=== PATIENT | female | born 1990 | race Caucasian/White ===

== ENCOUNTER 2018-08-03 23:42 | Emergency (ER) | payer OTHER ==
[~2018-08-03] VITALS: Ht 165.1 cm; Wt 64.1 kg
[~2018-08-03 23:42] MED LIST: ALBU0.0939 IH; BECL0.089 INH; FERR-142 PO; PREN-234 PO
[2018-08-03 23:45] VITALS: BP 106/64
--- NOTE | 2018-08-03 23:49 | NUR ---
Mekhi prasad in [facility] - 08/03/18 at 2352 by CRISTINA PT TAKEN TO BED 2
--- NOTE | 2018-08-03 23:56 | NUR ---
PT TAKEN TO BED 6
[2018-08-03] MEDS ORDERED: NACL 0.9% 1,000 ML IV SCH (23:59)
--- NOTE | 2018-08-04 | NUR ---
PT BIB FAMILY C/O LOW LT ABD PAIN X 1-2 DAYS, HX SZ, BIPOLAR, CROHN'SPT DENIES N/V/D; SKIN IS INTACT, PINK/WARM/DRY; AAOX4, PERRL, UNSTEADY GAIT S/P LOW ABD PAIN; LUNGS CLEAR BL, BREATHING UNLABORED; HR EVEN AND REGULAR, BL PERIPHERAL PULSES PRESENT; BS ACTIVE X4, NO TENDERNESS TO PALPATION, NO PT DENIES ANY FEVER, CP, SOB, OR COUGH AT THIS TIME; PT STATES 7/10 PAIN AT THIS TIME; VSS; PATIENT POSITIONED FOR COMFORT; HOB ELEVATED; BEDRAILS UP X2; BED DOWN.
[2018-08-04] MEDS ORDERED: QUET200T PO (00:01)
[2018-08-04] MEDS ORDERED: ELA10 PO (00:01)
[2018-08-04] MEDS ORDERED: LEVE1000 PO (00:01)
--- NOTE | 2018-08-04 00:05 | NUR ---
LAB AT BEDSIDE
--- NOTE | 2018-08-04 00:19 | NUR ---
X-Ray at bedside.
[2018-08-04 00:22] LABS: BASOPHILS % (AUTO) 0.6 % (0.0-2.0); EOSINOPHILS # (AUTO) 0.1 K/uL (0-0.4); EOSINOPHILS % (AUTO) 2.1 % (0.0-4.0); HEMATOCRIT 35.5 % (36-48); HEMOGLOBIN 11.7 g/dL (12.0-16.0); LYMPHOCYTES # (AUTO) 1.9 K/uL (2.5-16.5); LYMPHOCYTES % (AUTO) 28.4 % (20.5-51.1); MEAN CORPUSCULAR HEMOGLOBIN 30 pg (27-31); MEAN CORPUSCULAR HGB CONC 33 g/dL (33-37); MEAN CORPUSCULAR VOLUME 90.8 fL (80-94); MONOCYTES # (AUTO) 0.4 K/uL (0.8-1.0); MONOCYTES % (AUTO) 6.3 % (1.7-9.3); NEUTROPHILS # (AUTO) 4.1 K/uL (1.8-7.7); NEUTROPHILS % (AUTO) 62.6 % (42.2-75.2); PLATELET COUNT (AUTO) 315 K/uL (140-450); RED BLOOD CELL COUNT(AUTO) 3.91 MIL/uL (4.20-5.40); RED CELL DISTRIBUTION WIDTH 15.2 % (11.6-13.7); WHITE BLOOD COUNT (AUTO) 6.6 K/uL (4.8-10.8)
[2018-08-04 00:26] LABS: ANION GAP 10.5 (8-16); CARBON DIOXIDE 27.3 mmol/L (21-32); CREATININE 0.7 mg/dL (0.6-1.3); POTASSIUM 3.8 mmol/L (3.5-5.1)
--- NOTE | 2018-08-04 00:31 | NUR ---
PT TAKEN TO CT
--- NOTE | 2018-08-04 00:31 | NUR ---
Mekhi prasad in [facility] - 08/04/18 at 0031 by CRISTINA PT TAKEN TO BED 6
[2018-08-04 00:32] LABS: ALBUMIN 3.5 g/dL (3.4-5.0); TOTAL BILIRUBIN 0.5 mg/dL (0.0-1.0)
[2018-08-04] MEDS ORDERED: fentaNYL 0.05 MG/ML VIAL IVP ONE (00:45)
[2018-08-04] MEDS ORDERED: levETIRAcetam 500 MG TAB PO ONE (00:45)
--- NOTE | 2018-08-04 00:50 | NUR ---
PT RETURN FROM CT
--- NOTE | 2018-08-04 01:56 | NUR ---
Dr. Lock evaluating patient at bedside.
[2018-08-04 02:13] VITALS: BP 100/54
--- NOTE | 2018-08-04 02:15 | NUR ---
Patient discharged with v/s stable. Written and verbal after care instructions given and explained. Patient alert, oriented and verbalized understanding of instructions. Ambulatory with steady gait. All questions addressed prior to discharge. ID band removed. Patient advised to follow up with PMD. Rx of KEPRA, DONNATOL, NORCO, MOTRIN given. Patient educated on indication of medication including possible reaction and side effects. Opportunity to ask questions provided and answered.
== END 2018-08-04 02:15 | disposition home or self-care (01) ==
LOC: MED 23:42
DX: K56.7 Ileus, unspecified (principal); J45.909 Unspecified asthma, uncomplicated; K21.9 Gastro-esophageal reflux disease without esophagitis; K50.90 Crohn's disease, unspecified, without complications; G40.909 Epilepsy, unspecified, not intractable, without status epilepticus; Z91.030 Bee allergy status; Z79.899 Other long term (current) drug therapy; Z85.038 Personal history of other malignant neoplasm of large intestine; Z98.890 Other specified postprocedural states
CPT/HCPCS: 36415; 71045; 74176; 80053; 81002; 81025; 83605; 85025; 87040; 99284; J3010; J7030; Q0092

== ENCOUNTER 2018-08-22 15:22 | Inpatient (IN) | payer OTHER ==
[~2018-08-22] VITALS: Ht 162.6 cm; Wt 66.7 kg
[~2018-08-22 15:22] MED LIST changes: +ELA10 PO; -FERR-142 PO; +LEVE1000 PO; -PREN-234 PO; +QUET200T PO
[2018-08-22 15:34] VITALS: BP 121/81
--- NOTE | 2018-08-22 15:50 | NUR ---
PT TO ER BED 6
--- NOTE | 2018-08-22 16:11 | NUR ---
UA SENT TO LAB
--- NOTE | 2018-08-22 16:17 | NUR ---
PT BIB SELF C/O 'RIPPING' 10/10 INTERMITENT LLQ ABD PAIN THAT RADIATES TO BACK. PRESSENCE OF LARGE MASS THAT IS TENDER TO TOUCH. PT REPORTS N/V/D. PT DENIES FEVER. PT SPEECH CLEAR, DELAYED. PT STS HX OF CHRONIC ABD PAIN. MEDHX:SIEZURE, BOWEL OBSTRUCTION, DM II, CHRON'S DISEASE, ASTHMA, DEPRESSION, ANXIETY RX: KEPPRA, AMYTRIPTALINE, PT DENIES N/V/D; SKIN IS INTACT, PALE/WARM/DRY; AAOX4, PERRL, WITH EVEN AND STEADY GAIT-SLOW S/P LOW ABD PAIN; LUNGS CLEAR BL, BREATHING UNLABORED; HR EVEN AND REGULAR, BL PERIPHERAL PULSES PRESENT; BS HYPOACTIVE ACTIVE X4 , TENDERNESS TO PALPATION. PT DENIES ANY FEVER, CP, SOB, OR COUGH AT THIS TIME; PT STATES 10/10 PAIN AT THIS TIME; VSS; PATIENT POSITIONED FOR COMFORT; HOB ELEVATED; BEDRAILS UP X2; BED DOWN.
--- NOTE | 2018-08-22 16:22 | NUR ---
SEIZURE PRECAUTIONS PLACED AT THIS TIME
[2018-08-22 16:31] LABS: APPEARANCE,URINE HAZY (CLEAR); BILIRUBIN,URINE 1+ (NEGATIVE); BLOOD, URINE TRACE-L (NEGATIVE); COLOR,URINE YELLOW (YELLOW); LEUKOCYTE ESTERASE ,URINE 2+ (NEGATIVE); NITRITE, URINE NEGATIVE (NEGATIVE); PH,URINE 6.5 (5.0-9.0); UGLUCOSE NEGATIVE (NEGATIVE)
[2018-08-22 16:36] LABS: BARBITURATE, URINE NEG. ng/ml (NEG <=200); BENZODIAZEPINE, URINE NEG. ng/mL (NEG <=200); CANNABINOID, URINE POS. ng/mL (NEG <=50); COCAINE, URINE NEG. ng/mL (NEG <=300); OPIATE, URINE POS. ng/mL (NEG <=2000); PHENCYCLIDINE SCREEN,URINE NEG. ng/mL (NEG <=25)
[2018-08-22 16:52] LABS: RBC,URINE 0-5 /HPF (0-5)
[2018-08-22] MEDS ORDERED: NACL 0.9% 1,000 ML IV ONE (17:24)
[2018-08-22] MEDS ORDERED: NACL 0.9% 2,000 ML IV SCH (17:24)
[2018-08-22] MEDS ORDERED: ONDANSETRON 4 MG/2 ML VIAL IVP ONE ×2 (17:25→20:15)
[2018-08-22] MEDS ORDERED: MORPHINE SULFATE 2 MG/ML SYR IVP ONE (17:25)
[2018-08-22 18:05] LABS: BASOPHILS % (AUTO) 0.4 % (0.0-2.0); EOSINOPHILS # (AUTO) 0.1 K/uL (0-0.4); EOSINOPHILS % (AUTO) 1.1 % (0.0-4.0); HEMATOCRIT 35.3 % (36-48); HEMOGLOBIN 11.7 g/dL (12.0-16.0); LYMPHOCYTES # (AUTO) 0.8 K/uL (2.5-16.5); LYMPHOCYTES % (AUTO) 11.9 % (20.5-51.1); MEAN CORPUSCULAR HEMOGLOBIN 30 pg (27-31); MEAN CORPUSCULAR HGB CONC 33 g/dL (33-37); MONOCYTES # (AUTO) 0.3 K/uL (0.8-1.0); MONOCYTES % (AUTO) 5.1 % (1.7-9.3); NEUTROPHILS # (AUTO) 5.3 K/uL (1.8-7.7); NEUTROPHILS % (AUTO) 81.5 % (42.2-75.2); PLATELET COUNT (AUTO) 365 K/uL (140-450); RED BLOOD CELL COUNT(AUTO) 3.88 MIL/uL (4.20-5.40); RED CELL DISTRIBUTION WIDTH 14.4 % (11.6-13.7); WHITE BLOOD COUNT (AUTO) 6.5 K/uL (4.8-10.8)
[2018-08-22 18:11] LABS: ANION GAP 12.3 (8-16); CARBON DIOXIDE 27.9 mmol/L (21-32); CREATININE 0.7 mg/dL (0.6-1.3); POTASSIUM 4.2 mmol/L (3.5-5.1)
[2018-08-22 18:16] LABS: PROTHROMBIN TIME 11.1 secs (10.8-13.4)
[2018-08-22 18:17] LABS: ALBUMIN 3.4 g/dL (3.4-5.0); TOTAL BILIRUBIN 0.5 mg/dL (0.0-1.0)
--- NOTE | 2018-08-22 18:24 | NUR ---
XRAY AT BEDSIDE
--- NOTE | 2018-08-22 18:32 | NUR ---
TAKEN TO CT.
[2018-08-22] MEDS ORDERED: PIPERACILLIN/TAZOBACTAM 3.375 GM in DEXTROSE 5% 50 ML IV ONE (18:50)
[2018-08-22] MEDS ORDERED: PIPERACILLIN/TAZOBACTAM 3.375 GM VIAL IV ONE (19:11)
--- NOTE | 2018-08-22 19:17 | NUR ---
REPORT GIVEN TO QUALITY CLOTH TESTER RN FOR CONTINUITY OF CARE.
--- NOTE | 2018-08-22 19:30 | NUR ---
RECEIVED REPORT FROM AM NURSE. PT LAYING IN BED, REPORTS 02/22 LLQ PAIN AND NAUSEA, WILL NOTIFY , PT AMBULATORY TO RESTROOM. VS NOTED.
--- NOTE | 2018-08-22 20:05 | NUR ---
Dr. Em evaluating patient at bedside.
[2018-08-22] MEDS ORDERED: MORPHINE SULFATE 4 MG/ML SYR IVP ONE (20:15)
[2018-08-22] MEDS ORDERED: NACL 0.9% 1,000 ML IV SCH (20:44)
[2018-08-22] MEDS ORDERED: DOCUSATE SODIUM 100 MG GELCAP PO PRN (20:45)
[2018-08-22] MEDS ORDERED: ACETAMINOPHEN 325 MG TAB PO PRN (20:45)
--- NOTE | 2018-08-22 21:10 | NUR ---
Patient will be admitted to care of DR RODRÍGUEZ. Admited to [facility]. Will go to room 126B. Belongings list completed. Report to BIBI VIDAL.
[2018-08-22] MEDS ORDERED: LEVE1000 PO (21:16)
[2018-08-22] MEDS ORDERED: DOCU-299 PO (21:16)
[2018-08-22] MEDS ORDERED: IBUP-2218 PO (21:16)
[2018-08-22] MEDS ORDERED: KEP500 PO ×2 (21:16)
[2018-08-22 21:25] LABS: MAGNESIUM 1.7 mg/dL (1.8-2.4); PHOSPHORUS 3.6 mg/dL (2.5-4.9); THYROID STIMULATING HORMONE 0.86 uIU/mL (0.34-3.74)
[2018-08-22] MEDS: DEXT 5% / NACL 0.9% 500 ML IV SCH (22:01)
[2018-08-22] MEDS ORDERED: cefTRIAXone 1,000 MG VIAL ONE (22:04)
[2018-08-22 22:30] VITALS: BP 110/69
--- NOTE | 2018-08-22 22:30 | NUR ---
RECEIVED PATIENT AWAKE, ALERT, RESPIRATION EVEN UNLABORED ON ROOM AIR. NO DISTRESS NOTED. SKIN IS WARM, DRY, AND INTACT. IV PATENT AND INTACT. MRSA SCREEN DONE. INITIAL ASSESSMENT DONE. VITALS WERE TAKEN. PATIENT STABLE. ORIENT PATIENT TO STAFF, ROOM, AND CALL LIGHT. ALL SAFETY MEASURES ARE IN PLACE. PADDED SIDE RAILS FOR SEIZURE PRECAUTION. BED IS AT LOW POSITION. CALL LIGHT WITHIN REACH. WILL CONTINUE TO MONITOR.
--- NOTE | 2018-08-22 22:55 | NUR ---
PATIENT COMPLAINED OF NAUSEOUS. PRN ANTIEMETIC ADMINISTERED PER ORDER. WILL CONTINUE TO MONITOR
[2018-08-22] MEDS: ONDANSETRON 4 MG/2 ML VIAL IM/IVP PRN (22:59)
[2018-08-22] MEDS: MORPHINE SULFATE 2 MG/ML SYR IVP PRN (23:49)
--- NOTE | 2018-08-22 23:50 | NUR ---
SPOKE TO DR. NAVARRO REGARDING NG-TUBE INSERTION ORDER. HE SAID ITS OKAY TO START TOMORROW MORNING AROUND 8AM.
--- NOTE | 2018-08-23 | NUR ---
VITALS WERE TAKEN. PATIENT COMPLAINED OF PAIN 10/10. PRN PAIN MEDS ADMINISTERED PER ORDER. WILL CONTINUE TO MONITOR
--- NOTE | 2018-08-23 01:00 | NUR ---
RECHECKED PATIENT. PATIENT SLEEPING COMFORTABLY NO DISTRESS NOTED. RESPIRATION EVEN UNLABORED ON ROOM AIR. CALL LIGHT WITHIN REACH WILL CONTINUE TO MONITOR.
[2018-08-23] MEDS: DEXT 5% / NACL 0.9% 500 ML IV SCH ×2 (02:55→09:45)
--- NOTE | 2018-08-23 03:55 | NUR ---
CHECKED PATIENT. PATIENT CONDITION STABLE. NO DISTRESS NOTED AT THIS TIME. WILL CONTINUE TO MONITOR.
--- NOTE | 2018-08-23 04:00 | NUR ---
CHECKED PATIENT. PATIENT SLEEPING NO DISTRESS NOTE. CALL LIGHT WITHIN REACH.
--- NOTE | 2018-08-23 07:26 | NUR ---
ENDORSED PATIENT TO DAY SHIFT NURSE FOR CONTINUITY OF CARE, PATIENT STABLE AT THIS TIME.
--- NOTE | 2018-08-23 07:27 | NUR ---
RECEIVED REPORT FROM ASSISTANT CONTROLLER NURSE FOR CONTINUITY OF CARE. PT IN STABLE CONDITION. RESPIRATIONS EVEN AND UNLABORED. IV INTACT AND PATENT. SAFETY MEASURES IN PLACE. BED IN LOW POSITION. CALL LIGHT AT BEDSIDE. WILL CONTINUE TO MONITOR.
[2018-08-23 07:56] LABS: BASOPHILS % (AUTO) 0.6 % (0.0-2.0); EOSINOPHILS # (AUTO) 0.2 K/uL (0-0.4); EOSINOPHILS % (AUTO) 3.4 % (0.0-4.0); HEMOGLOBIN 10.1 g/dL (12.0-16.0); LYMPHOCYTES # (AUTO) 1.7 K/uL (2.5-16.5); LYMPHOCYTES % (AUTO) 28.8 % (20.5-51.1); MEAN CORPUSCULAR HEMOGLOBIN 31 pg (27-31); MEAN CORPUSCULAR HGB CONC 34 g/dL (33-37); MEAN CORPUSCULAR VOLUME 91.1 fL (80-94); MONOCYTES # (AUTO) 0.4 K/uL (0.8-1.0); MONOCYTES % (AUTO) 7.5 % (1.7-9.3); NEUTROPHILS # (AUTO) 3.5 K/uL (1.8-7.7); NEUTROPHILS % (AUTO) 59.7 % (42.2-75.2); PLATELET COUNT (AUTO) 346 K/uL (140-450); RED BLOOD CELL COUNT(AUTO) 3.29 MIL/uL (4.20-5.40); RED CELL DISTRIBUTION WIDTH 14.3 % (11.6-13.7); WHITE BLOOD COUNT (AUTO) 5.9 K/uL (4.8-10.8)
[2018-08-23 08:00] VITALS: BP 98/59
[2018-08-23 08:20] LABS: ANION GAP 8.1 (8-16); CARBON DIOXIDE 29.7 mmol/L (21-32); CREATININE 0.7 mg/dL (0.6-1.3); POTASSIUM 3.8 mmol/L (3.5-5.1)
[2018-08-23 08:22] LABS: MAGNESIUM 1.6 mg/dL (1.8-2.4); PHOSPHORUS 3.7 mg/dL (2.5-4.9)
[2018-08-23 08:23] LABS: CHOL/HDL RATIO 2.6 (1-4.5)
--- NOTE | 2018-08-23 08:42 | NUR ---
PATIENT HAS BEEN SCREENED AND CATEGORIZED MODERATE NUTRITION RISK. PATIENT WILL BE SEEN WITHIN 3-5 DAYS OF ADMISSION. 08/25/18ANA[address]
--- NOTE | 2018-08-23 09:15 | NUR ---
GIVEN ORDERED DUE MEDICATIONS AT THIS TIME. PT TOLERATED WELL. WILL CONTINUE TO MONITOR. BED IN LOW POSITION. CALL LIGHT AT BEDSIDE.
[2018-08-23] MEDS: levETIRAcetam 1,000 MG in NACL 0.9% 100 ML IV SCH ×2 (09:37→21:13)
[2018-08-23] MEDS: LACTOBACILLUS RHAMNOSUS GG 1 EACH CAP PO SCH (09:37)
[2018-08-23] MEDS: HYDROcodone/APAP 7.5/325 MG 1 TAB PO PRN ×3 (09:37→23:04)
[2018-08-23] MEDS ORDERED: MAGNESIUM OXIDE 400 MG TAB PO ONE (09:55)
[2018-08-23] MEDS: DEXT 5% /NACL 0.9% 1,000 ML IV SCH ×2 (10:08→21:02)
[2018-08-23] MEDS: MAG SULF 2000 MG/WATER PREMIX 50 ML IV SCH ×2 (11:42→13:34)
--- NOTE | 2018-08-23 11:46 | NUR ---
PT LYING IN BE D SLEEPING AT THIS TIME. RESPIRATIONS EVEN AND UNLABORED. WILL CONTINUE TO MONITOR. BED IN LOW POSITION. CALL LIGHT AT BEDSIDE.
--- NOTE | 2018-08-23 14:30 | NUR ---
EMILY DUNCAN SEEN PT, ORDERED ABD BINDER AT THIS TIME. PT TOLERATED WELL. WILL CONTINUE TO MONITOR. BED IN LOW POSITION. CALL LIGHT AT BEDSIDE.
[2018-08-23 16:00] VITALS: BP 111/69
--- NOTE | 2018-08-23 16:52 | NUR ---
PT LYING IN BED SLEEPING AT THIS TIME. RESPIRATIONS EVEN AND UNLABORED. WILL CONTINUE TO MONITOR. BED IN LOW POSITION. CALL LIGHT AT BEDSIDE.
--- NOTE | 2018-08-23 19:30 | NUR ---
GAVE REPORT TO RAKER BUFFING WHEEL NURSE FOR CONTINUITY OF CARE. PT IN STABLE CONDITION.
--- NOTE | 2018-08-23 19:35 | NUR ---
RECEIVED ENDORSEMENT FROM AM SHIFT RN; PATIENT A/Ox4, ABLE TO MAKE NEEDS KNOWN. PATIENT IS AMBULATORY. NO SOB OR DISTRESS NOTED. IV SITE ON LEFT ANTECUBITAL, 20 GAUGE, INTACT AND PATENT. SKIN INTACT. BED IN THE LOWEST POSITION, CALL LIGHT WITHIN REACH. INITIAL ASSESSMENT DONE. WILL CONTINUE TO MONITOR.
[2018-08-23] MEDS: MORPHINE SULFATE 2 MG/ML SYR IVP PRN (21:16)
--- NOTE | 2018-08-23 22:00 | NUR ---
PATIENT AWAKE, WATCHING TV. NO DISTRESS NOTED.
[2018-08-24] VITALS: BP 107/63
--- NOTE | 2018-08-24 00:05 | NUR ---
ROUNDS MADE, VITALS SIGNS TAKEN. NO DISTRESS NOTED.
--- NOTE | 2018-08-24 02:30 | NUR ---
FREQUENT CHECKS MADE. PATIENT ASLEEP, EYES CLOSED, VISIBLE CHEST RISE AND FALL NOTED.
--- NOTE | 2018-08-24 04:15 | NUR ---
CHECKS MADE. NO DISTRESS NOTED.
[2018-08-24] MEDS: DEXT 5% /NACL 0.9% 1,000 ML IV SCH ×2 (05:17→23:17)
--- NOTE | 2018-08-24 05:22 | NUR ---
REPLENISHED IVF. PATIENT ASLEEP, NO SOB OR DISTRESS NOTED.
--- NOTE | 2018-08-24 07:25 | NUR ---
ENDORSED PATIENT TO AM SHIFT RN; PATIENT IN STABLE CONDITION.
--- NOTE | 2018-08-24 07:26 | NUR ---
RECEIVED BEDSIDE REPORT FROM RECREATIONAL THERAPY AIDE NURSE. PATIENT IS AWAKE, ALERT AND ORIENTEDX4. NO SIGNS OF DISTRESS ON RA. SKIN INTACT. PATIENT GAIT IS STEADY. PATIENT IS CONTINENT. NO COMPLAINTS AT THIS TIME. IV ON L AC 20 INFUSING D5NS AT 100. CLEAN, DRY AND INTACT. BED IN LOW POSITION. CALL LIGHT WITHIN REACH. WILL CONTINUE TO MONITOR
[2018-08-24 08:00] VITALS: BP 95/53
[2018-08-24] MEDS: levETIRAcetam 1,000 MG in NACL 0.9% 100 ML IV SCH ×2 (09:03→20:20)
--- NOTE | 2018-08-24 09:05 | NUR ---
ADMINISTERED MEDS. PATIENT TOLERATED WELL. WILL CONTINUE TO MONITOR THE PATIENT.
[2018-08-24] MEDS: LACTOBACILLUS RHAMNOSUS GG 1 EACH CAP PO SCH (09:06)
[2018-08-24] MEDS: ONDANSETRON 4 MG/2 ML VIAL IM/IVP PRN (09:06)
[2018-08-24 09:26] LABS: BASOPHILS # (AUTO) 0.1 K/uL (0.00-0.22); BASOPHILS % (AUTO) 1.3 % (0.0-2.0); EOSINOPHILS # (AUTO) 0.2 K/uL (0-0.4); HEMATOCRIT 29.8 % (36-48); LYMPHOCYTES % (AUTO) 43.9 % (20.5-51.1); MEAN CORPUSCULAR HEMOGLOBIN 31 pg (27-31); MEAN CORPUSCULAR HGB CONC 34 g/dL (33-37); MEAN CORPUSCULAR VOLUME 91.8 fL (80-94); MONOCYTES # (AUTO) 0.3 K/uL (0.8-1.0); MONOCYTES % (AUTO) 7.4 % (1.7-9.3); NEUTROPHILS % (AUTO) 43.4 % (42.2-75.2); PLATELET COUNT (AUTO) 338 K/uL (140-450); RED BLOOD CELL COUNT(AUTO) 3.24 MIL/uL (4.20-5.40); RED CELL DISTRIBUTION WIDTH 14.2 % (11.6-13.7); WHITE BLOOD COUNT (AUTO) 4.5 K/uL (4.8-10.8)
[2018-08-24 09:36] LABS: ANION GAP 10.7 (8-16); CREATININE 0.6 mg/dL (0.6-1.3); POTASSIUM 3.7 mmol/L (3.5-5.1)
--- NOTE | 2018-08-24 11:00 | NUR ---
PATIENT IS SLEEPING, NO SIGNS OF DISTRESS. WILL CONTINUE TO MONITOR
[2018-08-24 13:19] LABS: FOLIC ACID 10.4 ng/mL (>3.0)
--- NOTE | 2018-08-24 13:44 | NUR ---
PATIENT REFUSING SENNA AT THIS TIME. SHE WANTS TO TALK TO DR DAY ABOUT IT, DR DAY SAID HE WILL BE RIGHT IN
[2018-08-24] MEDS: SENNA 8.6 MG TAB PO SCH ×2 (15:05→18:29)
--- NOTE | 2018-08-24 15:07 | NUR ---
DR SOTO SPOKE TO PATIENT. PT AGREED TO TAKE SENNA. ADMINISTERED MEDICATION. PATIENT TOLERATED WELL. RESTING IN BED, NO SIGNS OF DISTRESS.
[2018-08-24 16:00] VITALS: BP 108/54
--- NOTE | 2018-08-24 17:00 | NUR ---
PATIENT IS SLEEPING. WILL CONTINUE TO MONITOR
--- NOTE | 2018-08-24 18:57 | NUR ---
FRIEND AT BEDSIDE. WILL CONTINUE TO MONITOR
--- NOTE | 2018-08-24 19:19 | NUR ---
GAVE BEDSIDE REPORT TO BRICK SIDING APPLICATOR NURSE. PATIENT ENDORSED IN STABLE CONDITION
--- NOTE | 2018-08-24 19:20 | NUR ---
RECEIVED PT IN STABLE CONDITION FROM AM NURSE. AWAKE,ALERT AND ORIENTED X4. AMBULATORY. MED SURG PT. WITH NO DISCOMFORT NOR PAIN NOTED AT THIS TIME. IVF INFUSI G WELL ON THE LT AC G#20. CLEAR AND PATENT. PLAN OF CARE DISCUSSED AND VERBALIZED UNDERSTANDING. BED ON LOWEST POSITION, CALL LIGHT WITHIN REACH, SIDE RAILS UP .PADDED . WILL CONTINUE TO MONITOR.
[2018-08-24] MEDS ORDERED: ACETAMINOPHEN 325 MG TAB PO PRN (20:45)
[2018-08-24] MEDS ORDERED: AMITRIPTYLINE 10 MG TAB PO SCH (21:00)
--- NOTE | 2018-08-24 21:10 | NUR ---
PT C/O MILD ABDOMINAL PAIN. TYLENOL 650 MG PO GIVEN ORDERED. WILL CONTINUE TO MONITOR.
--- NOTE | 2018-08-24 22:10 | NUR ---
MADE ROUNDS. PT ASLEEP. NO S/S. OF ANY DISCOMFORT NOR PAIN NOTED.
[2018-08-25 00:30] VITALS: BP 103/49
--- NOTE | 2018-08-25 00:30 | NUR ---
VITAL SIGNS STABLE. NO MORE C/O ANY PAIN NOTED.
--- NOTE | 2018-08-25 02:30 | NUR ---
MADE ROUNDS. ASLEEP. IVF IFNUSING WELL. NO S/S OF ANY DISCOMFORT NOTED.
--- NOTE | 2018-08-25 04:00 | NUR ---
MADE ROUNDS. PT ASLEEP. NO S/S OF ANY DISCOMFORT NOR PAIN NOTED.
--- NOTE | 2018-08-25 06:00 | NUR ---
PT STILL ASLEEP. NO S/S OF ANY DISCOMFORT NOR PAIN NOTED.
--- NOTE | 2018-08-25 07:25 | NUR ---
ENDORSED PT IN STABLE CONDITION TO AM NURSE.
--- NOTE | 2018-08-25 07:26 | NUR ---
RECEIVED BEDSIDE REPORT FROM CARD BRUSHER NURSE. PATIENT IS AWAKE, ALERT AND ORIENTEDX4. NO SIGNS OF DISTRESS ON RA. SKIN IS INTACT. PATIENT IS AMBULATORY, GAIT IS STEADY. IV ON L AC 20G INFUSING D5NS AT 40. CLEAN DRY AND INTACT. PATIENT IS CONTINENT. SEIZURE PRECAUTIONS. BED IN LOW POSITION. CALL LIGHT WITHIN REACH. WILL CONTINUE TO MONITOR
[2018-08-25 08:00] VITALS: BP 107/62
[2018-08-25] MEDS: LACTOBACILLUS RHAMNOSUS GG 1 EACH CAP PO SCH (09:19)
[2018-08-25] MEDS: levETIRAcetam 1,000 MG in NACL 0.9% 100 ML IV SCH (09:20)
--- NOTE | 2018-08-25 09:26 | NUR ---
ADMINISTERED MEDS. PATIENT TOLERATED WELL. WILL CONTINUE TO MONITOR
[2018-08-25] MEDS ORDERED: LEVE1000 PO (09:28)
[2018-08-25] MEDS ORDERED: SENN-74 PO (09:28)
[2018-08-25] MEDS ORDERED: KEP500 PO ×2 (09:28)
--- NOTE | 2018-08-25 10:56 | NUR ---
PATIENT IS SLEEPING. WILL CONTINUE TO MONITOR
--- NOTE | 2018-08-25 11:44 | NUR ---
EDUCATED PATIENT ON DISEASE PROCESS, ABN S/SX WHEN TO GO TO THE ER. EDUCATED ON MEDS, MEDS SENT TO PHARMACY. EDUCATED ON F/U APPOINTMENT AND TO SEE GI SPECIALIST. EDUCATED ON REFUSAL OF PNA AND INFLUENZA VACCINE. HOMELESS PACKET GIVEN AND SIGNED BY PATIENT. PATIENT WAITING FOR FRIEND TO TEXT HER THAT SHE CAN COME OVER, PATIENT WILL LEAVE WHEN FRIEND TEXTS HER BACK. PATIENT WILL BE PROVIDED W 2 ANNE MARIE PASSES. WILL CONTINUE TO MONITOR THE PATIENT.
--- NOTE | 2018-08-25 12:20 | NUR ---
PATIENT HAD A RIDE FROM A FRIEND. REMOVED ID BAND AND IV, TIP INTACT. PATIENT LEFT IN STABLE CONDITION
== END 2018-08-25 12:20 | disposition home or self-care (01) | DRG 247 ==
LOC: MED 15:22 → MMU 20:46
PROVIDERS: ADMIT General Practice; ATTEND General Practice
DX: K56.609 Unspecified intestinal obstruction, unspecified as to partial versus complete obstruction (principal); E83.42 Hypomagnesemia; D64.9 Anemia, unspecified; K21.9 Gastro-esophageal reflux disease without esophagitis; J45.909 Unspecified asthma, uncomplicated; G40.909 Epilepsy, unspecified, not intractable, without status epilepticus; N12 Tubulo-interstitial nephritis, not specified as acute or chronic; R16.0 Hepatomegaly, not elsewhere classified; Z91.030 Bee allergy status; Z79.899 Other long term (current) drug therapy; Z80.0 Family history of malignant neoplasm of digestive organs; Z87.891 Personal history of nicotine dependence; Z59.0 Homelessness; Z90.49 Acquired absence of other specified parts of digestive tract; N39.0 Urinary tract infection, site not specified
CPT/HCPCS: 36415; 71045; 74018; 74250; 80048; 80053; 80305; 81001; 81025; 82150; 82607; 82746; 83036; 83540; 83605; 83690; 83735; 83880; 84100; 84443; 84484; 84703; 85025; 85045; 85610; 85730; 87040; 87081; 87086; 93005; 96361; 96365; 96375; 96376; 99285; J0696; J1953; J2270; J2405; J2543; J3475; J7042; J7060; Q0092; Q9967

== ENCOUNTER 2022-01-06 21:30 | Emergency (ER) | payer MEDICAID, OTHER ==
[~2022-01-06] VITALS: Ht 160 cm; Wt 72.7 kg
[~2022-01-06 21:30] MED LIST changes: -ALBU0.0939 IH; -BECL0.089 INH; +DOCU-299 PO; -ELA10 PO; +IBUP-2218 PO; +KEP500 PO; -QUET200T PO; +SENN-74 PO
[2022-01-06 22:06] VITALS: BP 122/64
--- NOTE | 2022-01-06 22:13 | NUR ---
PT IN RR FOR URINE COLLECTION, SENT TO LOBBY AFTER.
[2022-01-06 22:36] LABS: BASOPHILS % (AUTO) 0.7 % (0.0-2.0); EOSINOPHILS # (AUTO) 0.1 K/uL (0-0.4); EOSINOPHILS % (AUTO) 1.4 % (0.0-4.0); HEMATOCRIT 24.1 % (36-48); HEMOGLOBIN 7.2 g/dL (12.0-16.0); LYMPHOCYTES % (AUTO) 28.9 % (20.5-51.1); MEAN CORPUSCULAR HEMOGLOBIN 22 pg (27-31); MEAN CORPUSCULAR HGB CONC 30 g/dL (33-37); MONOCYTES # (AUTO) 0.6 K/uL (0.8-1.0); MONOCYTES % (AUTO) 8.3 % (1.7-9.3); NEUTROPHILS # (AUTO) 4.2 K/uL (1.8-7.7); NEUTROPHILS % (AUTO) 60.7 % (42.2-75.2); PLATELET COUNT (AUTO) 440 K/uL (140-450); RED BLOOD CELL COUNT(AUTO) 3.26 MIL/uL (4.20-5.40); RED CELL DISTRIBUTION WIDTH 21.2 % (11.6-13.7); WHITE BLOOD COUNT (AUTO) 6.9 K/uL (4.8-10.8)
[2022-01-06 23:04] LABS: ALBUMIN 3.3 g/dL (3.4-5.0); ANION GAP 12.8 (8-16); CARBON DIOXIDE 24.6 mmol/L (21-32); CREATININE 0.5 mg/dL (0.6-1.3); POTASSIUM 3.4 mmol/L (3.5-5.1); TOTAL BILIRUBIN 0.4 mg/dL (0.0-1.0)
[2022-01-06 23:31] LABS: PROTHROMBIN TIME 10.4 secs (10.8-13.4)
--- NOTE | 2022-01-07 00:06 | NUR ---
RUTHANN DOBSON EXAMINING PT IN CHAIR
--- NOTE | 2022-01-07 00:36 | NUR ---
ABOUT 8WKS SENT A REFERRAL FROM CLINIC FOR HGB OF 6.9. PT REPORTS WEAKNESS, DIZZINESS AND FAINT X1WK HX:CROHNS, EPILEPSY RX:RAN OUT OF SEIZURE MEDS ALLERGY:BEES
--- NOTE | 2022-01-07 02:30 | NUR ---
RESTING COMFORTABLY AT PRESENT
--- NOTE | 2022-01-07 06:00 | NUR ---
RESTING COMFORTABLY, UP TO BR. SANDWICH GIVEN, BACK TO BED AND MADE COMFORTABLE
--- NOTE | 2022-01-07 08:55 | NUR ---
Consent signed per PATIENT agreeing to administration of blood. Blood has been type and crossmatched. Blood sent from blood bank. Information on unit of blood checked against patient wristband at bedside by two nurses. All information matches. Patient or responsible democrat informed of potential complications associated with blood transfusion. Informed of possible transfusion reaction symptoms. Aware of need to notify nurse at once of itching, shortness of breath, flushing, feeling of impending doom, or other symptoms not previously present. Vital signs taken within 5 minutes prior to initiation of transfusion. RN will remain with patient for first 15 minutes of transfusion at which time vital signs will be re-assessed.
[2022-01-07 12:10] VITALS: BP 103/52
--- NOTE | 2022-01-07 12:11 | NUR ---
Patient discharged with v/s stable. Written and verbal after care instructions given and explained. Patient verbalized understanding. Ambulatory with steady gait. All questions addressed prior to discharge. Advised to follow up with PMD.
== END 2022-01-07 12:11 | disposition home or self-care (01) ==
LOC: MED 21:30
DX: O99.011 Anemia complicating pregnancy, first trimester (principal); D50.0 Iron deficiency anemia secondary to blood loss (chronic); J45.909 Unspecified asthma, uncomplicated; E11.9 Type 2 diabetes mellitus without complications; G40.909 Epilepsy, unspecified, not intractable, without status epilepticus; K21.9 Gastro-esophageal reflux disease without esophagitis; Z3A.08 8 weeks gestation of pregnancy; Z79.899 Other long term (current) drug therapy; Z85.038 Personal history of other malignant neoplasm of large intestine
CPT/HCPCS: 36415; 36430; 76801; 80053; 81002; 81025; 85025; 85610; 85730; 86886; 86900; 86901; 86920; 99285; P9016; Q0092

== ENCOUNTER 2022-02-19 08:33 | Emergency (ER) | payer MEDICAID ==
[~2022-02-19] VITALS: Ht 162.6 cm; Wt 65.8 kg
[2022-02-19 08:35] VITALS: BP 105/63
--- NOTE | 2022-02-19 08:35 | NUR ---
PATIENT BIBA TO BED 6.
[2022-02-19] MEDS ORDERED: ACETAMINOPHEN EXTRA STRENGTH 500 MG TAB PO ONE (08:50)
--- NOTE | 2022-02-19 09:15 | NUR ---
DR AGUIRRE AT BEDSIDE EVALUATING PT
[2022-02-19] MEDS ORDERED: MORPHINE SULFATE 4 MG/ML SYR IVP ONE ×3 (09:20→12:00)
[2022-02-19 09:36] LABS: BASOPHILS % (AUTO) 0.5 % (0.0-2.0); EOSINOPHILS # (AUTO) 0.1 K/uL (0-0.4); EOSINOPHILS % (AUTO) 0.8 % (0.0-4.0); HEMATOCRIT 23.6 % (36-48); HEMOGLOBIN 7.4 g/dL (12.0-16.0); LYMPHOCYTES # (AUTO) 1.2 K/uL (2.5-16.5); LYMPHOCYTES % (AUTO) 17.8 % (20.5-51.1); MEAN CORPUSCULAR HEMOGLOBIN 24 pg (27-31); MEAN CORPUSCULAR HGB CONC 31 g/dL (33-37); MEAN CORPUSCULAR VOLUME 75.1 fL (80-94); MONOCYTES # (AUTO) 0.5 K/uL (0.8-1.0); MONOCYTES % (AUTO) 7.1 % (1.7-9.3); NEUTROPHILS # (AUTO) 4.8 K/uL (1.8-7.7); NEUTROPHILS % (AUTO) 73.8 % (42.2-75.2); PLATELET COUNT (AUTO) 302 K/uL (140-450); RED BLOOD CELL COUNT(AUTO) 3.14 MIL/uL (4.20-5.40); WHITE BLOOD COUNT (AUTO) 6.5 K/uL (4.8-10.8)
--- NOTE | 2022-02-19 10:00 | NUR ---
US AT BEDSIDE
[2022-02-19 10:01] LABS: ALBUMIN 2.3 g/dL (3.4-5.0); CARBON DIOXIDE 22.4 mmol/L (21-32); CREATININE 0.5 mg/dL (0.6-1.3); POTASSIUM 3.4 mmol/L (3.5-5.1); TOTAL BILIRUBIN 0.3 mg/dL (0.0-1.0)
--- NOTE | 2022-02-19 10:10 | NUR ---
31YO FEMALE PT BIBA FROM [facility] C/O RLQ 10 PAIN XTHIS MORNING. PT REPORTS SUDDEN ONSET AND IS CURRENTLY - . HEART TONE PRESENT. ABDOMEN NON TENDER TO TOUCH, ACTIVE X4. PT PRESENTS WITH ABDOMINAL SCAR DUE TO HX OF HERNIA. DENIES N/V/D , CHEST PAIN, SOB OR TAKING MEDICATION FOR PAIN. PT AAOX4, IN VISIBLE DISTRESS. PT ON MAINTENANCE WORKER. BED AT LOWEST POSITION, BED RAIL UP X2. SEIZURE PADS IN PLACE HX: Asthma, Cancer (Colon), GERD , Crohn's Disease , abd hernia, ANEMIA, Seizures NKA
[2022-02-19] MEDS ORDERED: ONDA8TAB87 PO (11:38)
[2022-02-19] MEDS ORDERED: ACET-8386 PO (11:38)
[2022-02-19 11:49] VITALS: BP 113/65
--- NOTE | 2022-02-19 11:51 | NUR ---
PT REPORTS SHE CANT MOVE D/T PAIN AND REQUESTING MORE PAIN MEDS. DR AGUIRRE MADE AWARE
--- NOTE | 2022-02-19 12:55 | NUR ---
PT SLEEPING AT THIS TIME AFTER MORPHINE. CONTACTED [facility] FOR ALYSA
--- NOTE | 2022-02-19 12:58 | NUR ---
IV removed, catheter intact and site benign. Applied folded 4x4 gauze and tape to stop bleeding.
--- NOTE | 2022-02-19 13:00 | NUR ---
Patient discharged with v/s stable. Written and verbal after care instructions ABOUT ABDOMINAL PAIN DURING given and explained. Patient alert, oriented and verbalized understanding of instructions. Wheel Chair Assisted with to car. All questions addressed prior to discharge. ID band removed. Patient advised to follow up with PMD. Rx of NORCO 5-325 AND ZOFRAN given. Patient educated on indication of medication including possible reaction and side effects. Opportunity to ask questions provided and answered.
--- NOTE | 2022-02-19 13:01 | NUR ---
PT PROVIDED WITH ALYSA
== END 2022-02-19 13:00 | disposition home or self-care (01) ==
LOC: MED 08:33
DX: O26.891 Other specified pregnancy related conditions, first trimester (principal); R10.31 Right lower quadrant pain; J45.909 Unspecified asthma, uncomplicated; K21.9 Gastro-esophageal reflux disease without esophagitis; D64.9 Anemia, unspecified; G40.909 Epilepsy, unspecified, not intractable, without status epilepticus; Z3A.14 14 weeks gestation of pregnancy; Z85.038 Personal history of other malignant neoplasm of large intestine; Z98.890 Other specified postprocedural states; Z79.899 Other long term (current) drug therapy
CPT/HCPCS: 76705; 76805; 80053; 81002; 81025; 83690; 85025; 96374; 96375; 99284; J2270; Q0092

== ENCOUNTER 2022-05-02 19:00 | Observation (INO) | payer MEDICAID ==
[~2022-05-02] VITALS: Ht 160 cm; Wt 80.3 kg
[~2022-05-02 19:00] MED LIST changes: +ACET-8386 PO; +ONDA8TAB87 PO
[2022-05-02 19:38] VITALS: BP 106/59
[2022-05-02 19:56] LABS: APPEARANCE,URINE SL CLOUDY (CLEAR); BILIRUBIN,URINE NEGATIVE (NEGATIVE); BLOOD, URINE NEGATIVE (NEGATIVE); COLOR,URINE YELLOW (YELLOW); LEUKOCYTE ESTERASE ,URINE TRACE (NEGATIVE); NITRITE, URINE NEGATIVE (NEGATIVE); UGLUCOSE NEGATIVE (NEGATIVE)
[2022-05-02 20:09] LABS: BARBITURATE, URINE NEGATIVE ng/ml (NEG <=200); BENZODIAZEPINE, URINE NEGATIVE ng/mL (NEG <=200); CANNABINOID, URINE NEGATIVE ng/mL (NEG <=50); COCAINE, URINE NEGATIVE ng/mL (NEG <=300); OPIATE, URINE NEGATIVE ng/mL (NEG <=2000); PHENCYCLIDINE SCREEN,URINE NEGATIVE ng/mL (NEG <=25)
[2022-05-02 20:11] LABS: RBC,URINE 0-5 /HPF (0-5); WBC,URINE 0-5 /HPF (0-5)
[2022-05-02 20:12] LABS: RED BLOOD CELL CASTS,URINE None Seen /LPF (None Seen)
== END 2022-05-02 21:45 | disposition home or self-care (01) ==
LOC: MLD 19:00
PROVIDERS: ADMIT Obstetrics & Gynecology; ATTEND Obstetrics & Gynecology
DX: O26.892 Other specified pregnancy related conditions, second trimester (principal); R10.9 Unspecified abdominal pain; O99.612 Diseases of the digestive system complicating pregnancy, second trimester; K62.89 Other specified diseases of anus and rectum; Z3A.25 25 weeks gestation of pregnancy
CPT/HCPCS: 76805; 76817; 80305; 81001; 87086; G0378; Q0092; 59025